=== PATIENT | male | born 1940 | race Caucasian/White ===

== ENCOUNTER → 2017-11-24 | Outpatient (CLI) | payer MEDICARE, OTHER ==
[~2017-11-24] MED LIST: ALFU10 PO; AMLO10 PO; ASPI81CH PO; ATOR20 PO; B-125000 MC1 PO; BUPR100ER PO; CHOL10002 PO; DOXY100 PO; FEBU40TA PO; LAVAP17G PO; LEVSOD100 PO; LOSHYD100 PO; MECL12.5 PO; METO100ER PO; MULVITMIND PO; PROM25 PO; SILD50TA PO; TADA10TA PO
== END | disposition home or self-care (01) ==
LOC: PLD 08:10 → LAB SHORT 08:10
DX: D23.11 Other benign neoplasm of skin of right eyelid, including canthus (principal)
CPT/HCPCS: 88304

== ENCOUNTER → 2018-03-24 | Outpatient (CLI) | payer MEDICARE, OTHER | END | disposition home or self-care (01) | LOC: LAB SHORT 16:35 → LAB EV 16:35 | DX: N30.00 Acute cystitis without hematuria (principal) | CPT/HCPCS: 87086 ==

== ENCOUNTER → 2018-05-30 | Outpatient (CLI) | payer MEDICARE, OTHER | LOC: LAB SHORT 10:42 → LAB EV 10:42 | DX: R82.71 Bacteriuria (principal) | CPT/HCPCS: 87077; 87086; 87186 ==

== ENCOUNTER → 2019-01-20 | Outpatient (CLI) | payer MEDICARE, OTHER | END | disposition home or self-care (01) | LOC: LAB EV 11:30 → LAB SHORT 11:30 | DX: N34.2 Other urethritis (principal) | CPT/HCPCS: 87077; 87086; 87186 ==

== ENCOUNTER → 2019-09-10 | Outpatient (CLI) | payer MEDICARE, OTHER | END | disposition home or self-care (01) | LOC: LAB EV 14:47 → LAB SHORT 14:47 | DX: N39.0 Urinary tract infection, site not specified (principal) | CPT/HCPCS: 87086 ==

== ENCOUNTER → 2019-11-28 | Outpatient (CLI) | payer MEDICARE, OTHER | LOC: LAB EV 14:51 → LAB SHORT 14:51 | DX: N39.0 Urinary tract infection, site not specified (principal) | CPT/HCPCS: 87086 ==

== ENCOUNTER → 2020-02-22 | Outpatient (CLI) | payer MEDICARE, OTHER | END | disposition home or self-care (01) | LOC: LAB EV 16:50 → LAB SHORT 16:50 | DX: N39.0 Urinary tract infection, site not specified (principal) | CPT/HCPCS: 87077; 87086; 87186 ==

== ENCOUNTER → 2020-06-29 | Outpatient (CLI) | payer MEDICARE, BC ==
[~2020-06-29] MED LIST changes: +Aspirin EC81 MG PO; +BUPR150ER PO; +Cialis20 MG PO; +FISH OIL 1,2001 EAC1 PO; +LEVO-T75 MC1 PO; +LOSARTAN-HCTZ1 EAC5 PO; +Lopressor 50 mg50 MG PO; +MULTIPLE VITAM1 EACH PO; +OMEP20ER PO; +VITAMIN D325 MC3 PO; +Viagra100 MG PO
== END | disposition home or self-care (01) ==
LOC: LAB SHORT 13:43 → LAB EV 13:43
DX: N39.0 Urinary tract infection, site not specified (principal)
CPT/HCPCS: 87077; 87086; 87186

== ENCOUNTER → 2020-09-01 | Outpatient (CLI) | payer MEDICARE, BC | LOC: LAB SHORT 16:10 | DX: R82.998 Other abnormal findings in urine (principal) | CPT/HCPCS: 87077; 87086; 87186 ==

== ENCOUNTER → 2020-09-19 | Outpatient (CLI) | payer MEDICARE, BC | END | disposition home or self-care (01) | LOC: LAB SHORT 11:40 → LAB EV 11:40 | DX: N39.0 Urinary tract infection, site not specified (principal) | CPT/HCPCS: 87077; 87086; 87186 ==

== ENCOUNTER → 2020-09-20 | Outpatient (CLI) | payer MEDICARE, BC | END | disposition home or self-care (01) | LOC: PLD 14:48 → LAB SHORT 14:48 | DX: L57.0 Actinic keratosis (principal); L28.0 Lichen simplex chronicus; I87.2 Venous insufficiency (chronic) (peripheral) | CPT/HCPCS: 88305; 88312; 88313 ==

== ENCOUNTER → 2022-04-16 | Outpatient (CLI) | payer MEDICARE, BC | END | disposition home or self-care (01) | LOC: LAB SHORT 17:54 → LAB 17:54 | DX: N39.0 Urinary tract infection, site not specified (principal) | CPT/HCPCS: 87077; 87086; 87186 ==

== ENCOUNTER → 2022-07-16 | Outpatient (CLI) | payer MEDICARE, BC | END | disposition home or self-care (01) | LOC: PLD 11:18 → LAB SHORT 11:18 | DX: L57.0 Actinic keratosis (principal) | CPT/HCPCS: 88305 ==

== ENCOUNTER 2023-03-21 14:36 | Inpatient (IN) | payer OTHER, MEDICARE, BC ==
[~2023-03-21] VITALS: Ht 190.5 cm; Wt 133.6 kg
[~2023-03-21 14:36] MED LIST changes: -BUPR150ER PO; +BUPROPION HCL200 M2 PO; +Uloric80 MG PO
[2023-03-21 15:37] LABS: Source, Urine Foley catheter
[2023-03-21 15:39] LABS: BASOPHILS ABSOLUTE AUTO 0.07 K/mm3 (0.00-0.23); BASOPHILS PERCENT AUTO 0 % (0-2); EOSINOPHILS ABSOLUTE AUTO 0.09 K/mm3 (0.00-0.68); EOSINOPHILS PERCENT AUTO 0 % (0-6); Hematocrit 37.9 % (37.0-53.0); Hemoglobin 13.1 g/dL (13.5-17.5); IMMATURE GRAN ABSOLUTE AUTO 0.12 K/mm3 (0.00-0.10); IMMATURE GRAN PERCENT AUTO 1 % (0-1); LYMPHOCYTES ABSOLUTE AUTO 1.22 K/mm3 (0.84-5.20); LYMPHOCYTES PERCENT AUTO 6 % (21-46); MONOCYTES ABSOLUTE AUTO 1.73 K/mm3 (0.16-1.47); MONOCYTES PERCENT AUTO 8 % (4-13); Mean Corpuscular HGB Conc 34.6 g/dL (31.5-36.5); Mean Corpuscular Volume 93 fL (80-100); Mean Platelet Volume 9.6 fL (9.1-12.4); NEUTROPHILS ABSOLUTE AUTO 18.28 K/mm3 (1.96-9.15); NEUTROPHILS PERCENT AUTO 85 % (41-73); Platelet Count 193 K/mm3 (150-400); RDW Coefficient Variation 13.2 % (11.7-14.2); RDW Standard Deviation 44.6 fL (35.1-46.3); Red Blood Cell Count 4.09 M/mm3 (4.30-5.90); White Blood Cell Count 21.51 K/mm3 (4.00-11.30)
[2023-03-21 15:40] LABS: Appearance, Urine Clear (Clear); Bilirubin, Urine Neg (Neg); Blood, Urine 3+ (Neg); Glucose Qualitative, Urine Neg (Neg); Ketones, Urine Neg (Neg); Leukocyte Esterase, Urine 2+ (Neg); Nitrite, Urine Neg (Neg); Protein, Urine 1+ (Neg); Specific Gravity, Urine 1.005 (1.003-1.022); Urobilinogen, Urine NORM (Normal)
[2023-03-21] MEDS ORDERED: ALFU10 PO (15:50)
[2023-03-21 15:53] LABS: Color, Urine Pale Yellow (P-Yellow)
[2023-03-21 15:56] LABS: Bacteria Mod /hpf; Red Blood Cells, Urine 0-2 /hpf (0-2); Squamous Epithelial Cells Not Seen /hpf (Few)
[2023-03-21 16:11] LABS: Albumin, Blood 3.2 g/dL (3.4-5.0); Albumin/Globulin Ratio 0.9 (0.8-1.8); Bun/Creatinine Ratio 22.7 (12.0-20.0); Calcium, Blood 9.5 mg/dL (8.5-10.1); Creatinine, Blood 1.54 mg/dL (0.60-1.20); Globulin, Blood 3.7 g/dL (2.2-4.0); Potassium, Blood 3.7 mmol/L (3.5-5.5); Total Protein, Blood 6.9 g/dL (6.4-8.2)
[2023-03-21] MEDS ORDERED: Carvedilol12.5 MG PO (17:53)
[2023-03-21] MEDS ORDERED: LACT PO (17:54)
[2023-03-21] MEDS ORDERED: TAMS.4ER PO (18:03)
[2023-03-21 20:06] VITALS: BP 135/61
--- NOTE | 2023-03-22 04:10 | NUR ---
SHIFT SUMMARY ADMITTED FOR UTI/SEPSIS. FULL CODE. PLAN IS FOR IV ANTIB RX, IV FLUIDS, BLOOD CX'S. HOOVER IN PLACE FOR RETENTION. SENT FROM [facility]. HE STRAIGHT CATHS HIMSELF AT HOME SOMETIMES, REPORTING HE DID THIS LAST WEEK. HE HAS BILATERAL FOOT BRACES FOR FOOT DROP. HE IS A&O X4, ON RA. HE IS WEAK AND 1 ASSIST TO BSC DUE TO UNSTEADINESS. REGULAR DIET. TELEMETRY: NSR @ 78 BPM.
[2023-03-22 05:10] VITALS: BP 110/98
[2023-03-22 05:23] LABS: BASOPHILS ABSOLUTE AUTO 0.04 K/mm3 (0.00-0.23); BASOPHILS PERCENT AUTO 0 % (0-2); EOSINOPHILS ABSOLUTE AUTO 0.03 K/mm3 (0.00-0.68); EOSINOPHILS PERCENT AUTO 0 % (0-6); Hemoglobin 12.9 g/dL (13.5-17.5); IMMATURE GRAN ABSOLUTE AUTO 0.05 K/mm3 (0.00-0.10); IMMATURE GRAN PERCENT AUTO 0 % (0-1); LYMPHOCYTES ABSOLUTE AUTO 0.69 K/mm3 (0.84-5.20); LYMPHOCYTES PERCENT AUTO 5 % (21-46); MONOCYTES ABSOLUTE AUTO 0.92 K/mm3 (0.16-1.47); MONOCYTES PERCENT AUTO 6 % (4-13); Mean Corpuscular HGB 32.5 pg (26.0-34.0); Mean Corpuscular HGB Conc 34.9 g/dL (31.5-36.5); Mean Corpuscular Volume 93 fL (80-100); Mean Platelet Volume 9.6 fL (9.1-12.4); NEUTROPHILS ABSOLUTE AUTO 12.93 K/mm3 (1.96-9.15); NEUTROPHILS PERCENT AUTO 88 % (41-73); Platelet Count 183 K/mm3 (150-400); RDW Coefficient Variation 13.2 % (11.7-14.2); RDW Standard Deviation 44.8 fL (35.1-46.3); Red Blood Cell Count 3.97 M/mm3 (4.30-5.90); White Blood Cell Count 14.66 K/mm3 (4.00-11.30)
[2023-03-22 05:44] LABS: Albumin, Blood 2.9 g/dL (3.4-5.0); Albumin/Globulin Ratio 0.7 (0.8-1.8); Bilirubin, Total 0.6 mg/dL (0.1-1.0); Bun/Creatinine Ratio 19.4 (12.0-20.0); Calcium, Blood 9.1 mg/dL (8.5-10.1); Creatinine, Blood 1.39 mg/dL (0.60-1.20); Globulin, Blood 3.9 g/dL (2.2-4.0); Potassium, Blood 3.9 mmol/L (3.5-5.5); Total Protein, Blood 6.8 g/dL (6.4-8.2)
[2023-03-22 07:28] VITALS: BP 131/63
--- NOTE | 2023-03-22 09:00 | NUR ---
pt laying in bed, in room this am, pt a/ox4, pleasant and cooperative with care, follows commands well, denies pain, states doing ok, lungs are clear t/o, resp even and unlabored, no cough noted, hrr, tele in place running sr per monitor, see strip, no edema noted, ppp+2, cap refill <3 sec, vs stable, afebrile, iv site is clear and patent, btx4, abd round soft nontender, voids via ojeda cath, skin c/w/d, derick tristan, call light in reach.
[2023-03-22 15:18] VITALS: BP 128/62
--- NOTE | 2023-03-22 18:40 | NUR ---
pt doing ok, did have a temp this evening, tylenol was given, no further changes this shift. spouce in to see him, call light in reach.
[2023-03-22 20:00] VITALS: BP 132/69
[2023-03-23 03:23] VITALS: BP 123/55
[2023-03-23 07:30] VITALS: BP 123/68
[2023-03-23 13:27] LABS: BASOPHILS ABSOLUTE AUTO 0.04 K/mm3 (0.00-0.23); BASOPHILS PERCENT AUTO 1 % (0-2); EOSINOPHILS ABSOLUTE AUTO 0.04 K/mm3 (0.00-0.68); EOSINOPHILS PERCENT AUTO 1 % (0-6); Hematocrit 37.6 % (37.0-53.0); Hemoglobin 12.8 g/dL (13.5-17.5); IMMATURE GRAN ABSOLUTE AUTO 0.02 K/mm3 (0.00-0.10); IMMATURE GRAN PERCENT AUTO 0 % (0-1); LYMPHOCYTES ABSOLUTE AUTO 0.73 K/mm3 (0.84-5.20); LYMPHOCYTES PERCENT AUTO 14 % (21-46); MONOCYTES ABSOLUTE AUTO 0.53 K/mm3 (0.16-1.47); MONOCYTES PERCENT AUTO 10 % (4-13); Mean Corpuscular HGB 31.5 pg (26.0-34.0); Mean Corpuscular Volume 93 fL (80-100); Mean Platelet Volume 9.9 fL (9.1-12.4); NEUTROPHILS ABSOLUTE AUTO 3.79 K/mm3 (1.96-9.15); NEUTROPHILS PERCENT AUTO 74 % (41-73); Platelet Count 183 K/mm3 (150-400); RDW Coefficient Variation 13.2 % (11.7-14.2); RDW Standard Deviation 44.9 fL (35.1-46.3); Red Blood Cell Count 4.06 M/mm3 (4.30-5.90); White Blood Cell Count 5.15 K/mm3 (4.00-11.30)
[2023-03-23 15:01] VITALS: BP 127/62
--- NOTE | 2023-03-23 18:19 | NUR ---
pt had an uneventful day, he states he isn't as achey as yesterday, doing well, in to see him, no further changes this shift, afebrile this evening. call light in reach.
[2023-03-23 20:07] VITALS: BP 120/73
[2023-03-24 05:18] VITALS: BP 136/73
[2023-03-24 05:37] LABS: BASOPHILS ABSOLUTE AUTO 0.05 K/mm3 (0.00-0.23); BASOPHILS PERCENT AUTO 1 % (0-2); EOSINOPHILS ABSOLUTE AUTO 0.17 K/mm3 (0.00-0.68); EOSINOPHILS PERCENT AUTO 3 % (0-6); Hematocrit 38.1 % (37.0-53.0); Hemoglobin 13.2 g/dL (13.5-17.5); IMMATURE GRAN ABSOLUTE AUTO 0.05 K/mm3 (0.00-0.10); IMMATURE GRAN PERCENT AUTO 1 % (0-1); LYMPHOCYTES ABSOLUTE AUTO 1.34 K/mm3 (0.84-5.20); LYMPHOCYTES PERCENT AUTO 22 % (21-46); MONOCYTES PERCENT AUTO 16 % (4-13); Mean Corpuscular HGB 31.7 pg (26.0-34.0); Mean Corpuscular HGB Conc 34.6 g/dL (31.5-36.5); Mean Corpuscular Volume 91 fL (80-100); Mean Platelet Volume 9.7 fL (9.1-12.4); NEUTROPHILS PERCENT AUTO 57 % (41-73); Platelet Count 192 K/mm3 (150-400); RDW Standard Deviation 43.4 fL (35.1-46.3); Red Blood Cell Count 4.17 M/mm3 (4.30-5.90); White Blood Cell Count 6.11 K/mm3 (4.00-11.30)
[2023-03-24 05:59] LABS: Calcium, Blood 9.2 mg/dL (8.5-10.1); Creatinine, Blood 1.39 mg/dL (0.60-1.20); Potassium, Blood 3.8 mmol/L (3.5-5.5)
[2023-03-24 07:38] VITALS: BP 127/78
[2023-03-24 15:18] VITALS: BP 131/75
--- NOTE | 2023-03-24 16:50 | NUR ---
SHIFT SUMMARY: NO ACUTE EVENTS. NO EVENTS ON TELEMETRY, SR 70-80'S. DENIED PAIN. HOOVER CATHETER D/C'D AT ~1140 THIS MORNING, STILL HAS NOT VOIDED AT TIME OF THIS NOTE, WILL BLADDER SCAN. PT THINKING CHRONIC CONSTIPATION MAY BE CONTRIBUTING TO URINARY RETENTION; FIRST DOSE LACTULOSE GIVEN WITH NO RESULT YET. FINASTERIDE ALSO GIVEN. HAS CPAP AT BEDSIDE, INDEPENDENT IN ITS USE.
[2023-03-24 20:06] VITALS: BP 126/67
[2023-03-25 03:25] VITALS: BP 141/75
[2023-03-25 07:00] LABS: Bun/Creatinine Ratio 17.9 (12.0-20.0); Calcium, Blood 9.1 mg/dL (8.5-10.1); Creatinine, Blood 1.23 mg/dL (0.60-1.20); Potassium, Blood 3.8 mmol/L (3.5-5.5)
[2023-03-25 07:19] VITALS: BP 136/75
[2023-03-25] MEDS ORDERED: FINA5 PO (12:45)
--- NOTE | 2023-03-25 13:51 | NUR ---
PATIENT DISCHARGED TO HOME WITH . IV SALINE LOCK AND TELEMETRY REMOVED WITHOUT INCIDENT. VERBALIZED UNDERSTANDING OF D/C ORDERS. OFF UNIT VIA W/C AT 1342. NO PERSONAL BELONGINGS LEFT BEHIND IN ROOM.
== END 2023-03-25 14:00 | disposition home or self-care (01) | DRG 698 ==
LOC: ER 14:36 → MEDS 14:37 → ENPENDDIS 03-25 12:51 → MEDS 03-25 14:00
PROVIDERS: Internal Medicine; Student in an Organized Health Care Education/Training Program; ADMIT Internal Medicine
PROC: 3E03329 Introduction of Other Anti-infective into Peripheral Vein, Percutaneous Approach (ICD-10-PCS; 2023-03-22)
PROC: 0T9B70Z Drainage of Bladder with Drainage Device, Via Natural or Artificial Opening (ICD-10-PCS; principal; 2023-03-23)
PROC: 5A09357 Assistance with Respiratory Ventilation, Less than 24 Consecutive Hours, Continuous Positive Airway Pressure (ICD-10-PCS; 2023-03-23)
DX: T83.518A Infection and inflammatory reaction due to other urinary catheter, initial encounter (principal); A41.9 Sepsis, unspecified organism; N39.0 Urinary tract infection, site not specified; N40.1 Benign prostatic hyperplasia with lower urinary tract symptoms; R33.8 Other retention of urine; E03.9 Hypothyroidism, unspecified; I12.9 Hypertensive chronic kidney disease with stage 1 through stage 4 chronic kidney disease, or unspecified chronic kidney disease; N18.30 Chronic kidney disease, stage 3 unspecified; G47.33 Obstructive sleep apnea (adult) (pediatric); G62.9 Polyneuropathy, unspecified; E78.5 Hyperlipidemia, unspecified; R51.9 Headache, unspecified; Y84.6 Urinary catheterization as the cause of abnormal reaction of the patient, or of later complication, without mention of misadventure at the time of the procedure; Z88.8 Allergy status to other drugs, medicaments and biological substances; Z79.899 Other long term (current) drug therapy; Z98.890 Other specified postprocedural states; Z88.5 Allergy status to narcotic agent; Z79.02 Long term (current) use of antithrombotics/antiplatelets; Z79.82 Long term (current) use of aspirin; Z87.891 Personal history of nicotine dependence
CPT/HCPCS: 36415; 71045; 80048; 80053; 81001; 83605; 83880; 84484; 85025; 87040; 87086; 93005; 93010; 94660; 94762; 96365; 96372; 99285-25; A9270; G0378; J0696; J1650; J7030

== ENCOUNTER → 2024-07-09 | Outpatient (CLI) | payer MEDICARE, BC ==
[~2024-07-09] MED LIST changes: +Carvedilol12.5 MG PO; +FINA5 PO; +LACT PO; +TAMS.4ER PO
[2024-07-09 12:31] LABS: Source, Urine Clean Catch
[2024-07-09 14:40] LABS: Appearance, Urine Clear (Clear); Bilirubin, Urine Neg (Neg); Blood, Urine Neg (Neg); Color, Urine Yellow (P-Yellow); Glucose Qualitative, Urine Neg (Neg); Ketones, Urine Neg (Neg); Leukocyte Esterase, Urine Neg (Neg); Nitrite, Urine Neg (Neg); Protein, Urine 2+ (Neg); Urobilinogen, Urine NORM (Normal)
[2024-07-09 14:49] LABS: Bacteria Rare /hpf; Red Blood Cells, Urine Not Seen /hpf (0-2); Squamous Epithelial Cells Rare /hpf (Few); White Blood Cells, Urine 0-2 /hpf (0-5)
== END ==
LOC: LAB SHORT 10:43 → LAB 10:43 → LAB FUT 07-07 10:40 → EDSTATUS 07-07 10:40
PROVIDERS: Internal Medicine
DX: R79.89 Other specified abnormal findings of blood chemistry (principal); R82.90 Unspecified abnormal findings in urine
CPT/HCPCS: 81001; 81050

== ENCOUNTER → 2025-02-17 | Outpatient (CLI) | payer MEDICARE, BC ==
[2025-02-17 19:24] LABS: Creatinine Urine 40.8 mg/dL (27.00-270.00)
== END ==
LOC: LAB 14:30 → LAB SHORT 14:30 → LAB FUT 02-14 11:00
PROVIDERS: Internal Medicine Nephrology
DX: N18.30 Chronic kidney disease, stage 3 unspecified (principal); D63.1 Anemia in chronic kidney disease; N25.81 Secondary hyperparathyroidism of renal origin; E55.9 Vitamin D deficiency, unspecified; E29.1 Testicular hypofunction; R76.9 Abnormal immunological finding in serum, unspecified; R94.5 Abnormal results of liver function studies; R94.6 Abnormal results of thyroid function studies; D51.8 Other vitamin B12 deficiency anemias; D52.8 Other folate deficiency anemias; D50.9 Iron deficiency anemia, unspecified; N39.0 Urinary tract infection, site not specified
CPT/HCPCS: 81050; 82043; 82570; 84156; 87086

== ENCOUNTER → 2025-05-31 | Outpatient (CLI) | payer MEDICARE, BC ==
[2025-05-31 16:35] LABS: BASOPHILS ABSOLUTE AUTO 0.06 K/mm3 (0.00-0.23); BASOPHILS PERCENT AUTO 1 % (0-2); EOSINOPHILS ABSOLUTE AUTO 0.07 K/mm3 (0.00-0.68); EOSINOPHILS PERCENT AUTO 1 % (0-6); Hematocrit 39.3 % (37.0-53.0); Hemoglobin 13.4 g/dL (13.5-17.5); IMMATURE GRAN ABSOLUTE AUTO 0.02 K/mm3 (0.00-0.10); IMMATURE GRAN PERCENT AUTO 0 % (0-1); LYMPHOCYTES ABSOLUTE AUTO 1.36 K/mm3 (0.84-5.20); LYMPHOCYTES PERCENT AUTO 14 % (21-46); MONOCYTES ABSOLUTE AUTO 0.73 K/mm3 (0.16-1.47); MONOCYTES PERCENT AUTO 7 % (4-13); Mean Corpuscular HGB Conc 34.1 g/dL (31.5-36.5); Mean Corpuscular Volume 91 fL (80-100); NEUTROPHILS ABSOLUTE AUTO 7.80 K/mm3 (1.96-9.15); NEUTROPHILS PERCENT AUTO 78 % (41-73); NRBC ABSOLUTE 0.00 K/mm3 (0.00-0.02); NRBC Auto 0.0 /100 WBC (0.0-0.2); Platelet Count 297 K/mm3 (150-400); RDW Coefficient Variation 13.6 % (11.7-14.2); RDW Standard Deviation 45.4 fL (35.1-46.3)
== END ==
LOC: LAB SHORT 15:17 → LAB 15:17
PROVIDERS: Internal Medicine Hematology & Oncology
DX: A42.1 Abdominal actinomycosis (principal)
CPT/HCPCS: 85025

== ENCOUNTER → 2025-06-08 | Outpatient (CLI) | payer MEDICARE, BC ==
[2025-06-08 17:25] LABS: Microalbumin, Urine Quant. 119.0 mg/L (0.000-20.000); Protein, Urine Quantitative 22.3 mg/dL (0.0-11.9)
== END | disposition home or self-care (01) ==
LOC: LAB SHORT 12:59 → LAB 12:59 → LAB FUT 06-06 11:15
PROVIDERS: Internal Medicine Nephrology
DX: N18.2 Chronic kidney disease, stage 2 (mild) (principal); D63.1 Anemia in chronic kidney disease; N25.81 Secondary hyperparathyroidism of renal origin; E55.9 Vitamin D deficiency, unspecified; R76.9 Abnormal immunological finding in serum, unspecified; R94.5 Abnormal results of liver function studies; R94.6 Abnormal results of thyroid function studies
CPT/HCPCS: 81050; 82043; 82570; 84156

== ENCOUNTER → 2025-07-15 | Outpatient (CLI) | payer MEDICARE, BC | LOC: LAB 15:08 → LAB SHORT 15:08 | DX: N39.0 Urinary tract infection, site not specified (principal) | CPT/HCPCS: 87077; 87086; 87186 ==

== ENCOUNTER → 2025-09-16 | Outpatient (CLI) | payer MEDICARE, BC | END | disposition home or self-care (01) | LOC: LAB SHORT 10:00 → LAB 10:00 | DX: N39.0 Urinary tract infection, site not specified (principal) | CPT/HCPCS: 87077; 87086; 87186 ==

== ENCOUNTER → 2025-10-18 | Outpatient (CLI) | payer MEDICARE, BC ==
[2025-10-18 18:06] LABS: Bilirubin, Urine Neg (Neg); Color, Urine Yellow (P-Yellow); Glucose Qualitative, Urine Neg (Neg); Ketones, Urine Neg (Neg); Leukocyte Esterase, Urine 3+ (Neg); Protein, Urine 3+ (Neg); Specific Gravity, Urine 1.010 (1.003-1.022); Urobilinogen, Urine NORM (Normal)
[2025-10-18 18:55] LABS: Red Blood Cells, Urine 0-2 /hpf (0-2); White Blood Cells, Urine 50-100 /hpf (0-5)
== END ==
LOC: LAB SHORT 16:47 → LAB 16:47
PROVIDERS: Internal Medicine Nephrology
DX: N39.0 Urinary tract infection, site not specified (principal); N18.30 Chronic kidney disease, stage 3 unspecified; D63.1 Anemia in chronic kidney disease; E55.9 Vitamin D deficiency, unspecified; N25.81 Secondary hyperparathyroidism of renal origin; E29.1 Testicular hypofunction; R76.9 Abnormal immunological finding in serum, unspecified; R94.5 Abnormal results of liver function studies; R94.6 Abnormal results of thyroid function studies
CPT/HCPCS: 81001; 87077; 87086; 87186